=== PATIENT | female | born 1995 | race Caucasian/White ===

== ENCOUNTER → 2023-06-02 17:42 | Outpatient (REF) | payer OTHER, SELFPAY | LOC: PAVMRI 17:42 | PROVIDERS: ATTENDING PHYSICIAN Physician Assistant Surgical; FAMILY PHYSICIAN Physician Assistant | DX: M76.32 Iliotibial band syndrome, left leg (principal); M25.562 Pain in left knee; M23.92 Unspecified internal derangement of left knee | CPT/HCPCS: 73721 ==